=== PATIENT | female | born 1950 | race Caucasian/White ===

== ENCOUNTER 2023-08-22 00:41 | Observation (INO) | payer MEDICARE, OTHER, SELFPAY ==
[2023-08-22] VITALS (8 sets, daily range): BP systolic 126–151; BP diastolic 48–76; PULSE 65–89; RESP 16–20; TEMP 36.3–37; O2SAT 93–98; BMI 31.7; BMI 32.0
--- NOTE | 2023-08-22 | ECG_ITS ---
Test Reason : NAUSEA Blood Pressure : / mmHG Vent. Rate : 066 BPM Atrial Rate : 066 BPM P-R Int : 198 ms QRS Dur : 094 ms QT Int : 428 ms P-R-T Axes : 004 -43 064 degrees QTc Int : 448 ms Normal sinus rhythm Left anterior fascicular block Abnormal ECG No previous ECGs available Referred By: Misbah East Electronically Signed By:MABEL BRADY MD
--- NOTE | ~2023-08-22 | CT_ITS ---
EXAMINATION: CT ABDOMEN AND PELVIS WITHOUT CONTRAST CLINICAL INFORMATION: Gross hematuria COMPARISON: None available. TECHNIQUE: Multidetector volumetric imaging was performed from the superior aspect of the liver through the pubic symphysis. Sagittal and coronal reformatted images were obtained on the technologist's workstation. This CT examination was performed using dose optimization techniques as appropriate, variously including the following: *Automated exposure control *Adjustment of mA and/or kV according to patient size (this includes techniques or standardized protocols for targeted exams where dose is matched to indication/reason for exam; i.e. extremities or head) *Use of iterative reconstruction technique DLP: 679 mGy-cm FINDINGS: LUNG BASES: The visualized lung bases are unremarkable. LIVER, GALLBLADDER, AND BILIARY TREE: The liver is normal in size, shape, and attenuation. No focal hepatic lesion or biliary ductal dilatation is present. Patient is status post cholecystectomy. PANCREAS: Unremarkable. SPLEEN: Calcified granuloma noted. ADRENAL GLANDS: Unremarkable. KIDNEYS AND URETERS: No hydronephrosis or obstructing calculus bilaterally. Tiny calculus noted in the lower left kidney. There are suspected bilateral renal sinus cysts as well as a few cortical cysts; no specific follow-up recommended for these. Of note, there is inadequate assessment for possible renal masses without intravenous contrast. BLADDER: Partially distended with subtle surrounding stranding. GASTROINTESTINAL TRACT: Colonic diverticulosis is noted. The small and large bowel are otherwise unremarkable without evidence of obstruction or pericolonic inflammatory change. The appendix is unremarkable. No free fluid or free air is seen. ABDOMINAL WALL: No significant hernia is appreciated. LYMPH NODES: Normal. VASCULAR: Mild atherosclerotic calcification. PELVIC VISCERA: Patient is status post hysterectomy. OSSEOUS STRUCTURES: Scattered degenerative changes in the spine. CT/CT abdomen pelvis wo IV con IMPRESSION: 1. No hydronephrosis or obstructing calculus. Tiny left lower pole renal calculus. 2. Subtle stranding around the urinary bladder, which could reflect cystitis in the proper clinical setting. 3. Colonic diverticulosis without diverticulitis. 4. Of note, there is inadequate assessment of possible renal masses in the setting of hematuria and lack of intravenous contrast. If warranted, this would be best further assessed with renal protocol MRI.
[2023-08-22 01:19] LABS: Appearance Urine Cloudy; Color Urine Yellow; Glucose Urine UA Negative (Negative); Leukocyte Esterase Urine Large (3+) (Negative); Nitrite Urine Negative (Negative); PH 5.5 (5.0-9.0); Specific Gravity - Urine 1.015 (1.005-1.025); UMIC TRIGGER UACC YES; Urine Blood Large (3+) (Negative); Urine Ketones Negative (Negative); Urine Protein 30 (1+) mg/dL (Neg-Trace)
[2023-08-22 01:24] LABS: Bacteria Urine None Seen (None Seen); Hyaline Casts Urine 0-2 /LPF (0-2); RBC Urine >20 /HPF (0-2); Squamous Epithelial Cell Urine 0-2 /HPF (0-2); UACC Culture Trigger YES; WBC Urine >50 /HPF (0-5)
--- NOTE | 2023-08-22 01:50 | PC.NURSE ---
pt reports her recent ABX was for a respiratory infection not a UTI. pt reports last UTI was 5 years ago. pain only with urination
[2023-08-22 02:14] LABS: MANUAL DIFF FLAG NO
[2023-08-22 02:15] LABS: Basophils Absolute Auto 0.1 X10*3/uL (0.0-0.2); Basophils Percent Auto 0.5 % (0-2); Eosinophils Absolute Auto 0.2 X10*3/uL (0.0-0.4); Hematocrit 34.8 % (37.0-47.0); Hemoglobin 11.5 g/dl (12.0-16.0); Imm Gran Abs Auto 0.07 X10*3/uL (0.00-0.03); Imm Gran Pct Auto 0.7 % (0.0-0.4); Lymphocytes Absolute Auto 2.2 X10*3/uL (1.2-4.9); Lymphocytes Percent Auto 20.8 % (20-40); Mean Corpuscular Hemoglobin 29.8 pg (27.0-33.0); Mean Corpuscular Volume 90.2 fL (80.0-98.0); Mean Platelet Volume 9.1 fL (9.4-12.3); Monocytes Absolute Auto 0.9 X10*3/uL (0.1-1.2); Monocytes Percent Auto 8.6 % (2-11); Neutrophils Absolute Auto 7.2 x10*3/uL (2.0-8.3); Neutrophils Percent Auto 67.4 % (45-73); Platelet Count 259 X10*3/uL (160-400); Red Blood Count 3.86 X10*6/uL (4.20-5.50); Red Cell Distribution Width 12.1 % (11.0-16.0); White Blood Count 10.7 X10*3/uL (4.8-10.8)
--- NOTE | 2023-08-22 02:19 | ED.FEMALEGU ---
HPI - Female Genitourinary General Chief complaint: Urogenital-Female Stated complaint: Blood in urine Time Seen by Provider: 08/22/23 02:18 Source: patient Mode of arrival: ambulatory Limitations: no limitations History of Present Illness HPI Narrative: Patient with history of hemochromatosis, diverticulosis comes here with dysuria frequency for last 4 hours with chills white urinating , noticed bright red blood when she urinated earlier today patient finished a course of amoxicillin for sinus infection about 10 days ago no history of kidney stone no rectal bleed Related Data Home Medications Medication Instructions Recorded Confirmed cetirizine 10 mg tablet 10 mg PO DAILY PRN 03/29/22 fenofibrate nanocrystallized 145 145 mg PO DAILY 03/29/22 mg tablet levothyroxine 25 mcg capsule 25 mcg PO DAILY 03/29/22 lisinopril 10 mg tablet 10 mg PO DAILY 03/29/22 omega-3 fatty acids 500 mg capsule 800 mg PO DAILY 03/29/22 Previous Rx's Medication Instructions Recorded prednisone 10 mg tablet 10 mg PO DAILY #28 tabs 03/29/22 cefuroxime axetil 250 mg tablet 250 mg PO BID 7 days #14 tabs 08/22/23 diphenhydramine HCl 25 mg capsule 50 mg (2 x 25 mg) PO TID PRN 08/22/23 (Benadryl) allergic reaction #30 caps loperamide 2 mg tablet (Imodium 2 mg PO Q6H PRN loose stool #14 08/22/23 A-D) tabs ondansetron 4 mg disintegrating 4 mg PO Q6-8H PRN nausea and 08/22/23 tablet vomiting #7 tabs Allergies Allergy/AdvReac Type Severity Reaction Status Date / Time phenazopyridine Allergy Severe Anaphylaxis Verified 08/22/23 06:47 [From Pyridium] Review of Systems Review of Systems: Yes all other systems are reviewed and are negative PMFSH Past Medical History Medical History Chronic anemia Kidney cysts Diverticulosis Hemochromatosis Social History Alcohol intake: current Alcohol intake frequency: holidays/special occasions only Smoked in Last 30 Days: No Use of substances other than those prescribed or required for medical reasons: No Advance Directives: No Advance Directives Information Provided: Yes Physical Exam Vital Signs: Vital Signs: Last Vital Signs Temp 97.4 F 08/22/23 05:43 Pulse 80 08/22/23 06:51 Resp 19 08/22/23 05:55 BP 137/48 L 08/22/23 06:51 Pulse Ox 93 08/22/23 05:55 O2 Del Method Room Air 08/22/23 05:55 BMI result Body Mass Index 31.7 Appearance: Alert. Oriented X3. No acute distress. Eyes: PERRLA, No Nystagmus ENT: Pharynx normal. Oral Mucosa moist Neck: Normal inspection. Neck supple. CVS: Normal heart rate and rhythm. Pulses normal. Respiratory: No respiratory distress. Equal air entry bilateral, no wheezing/rales/rhonchi Abdomen: Soft and nontender. Bowel sounds are present, no mass palpable, no CVA tenderness Skin: Skin warm and dry. Normal skin color. Normal skin turgor. Extremities: No lower extremity edema. No calf tenderness Neuro: Oriented X 3. No motor deficit. No sensory deficit.No cerebellar signs , cranial nerves II-XII intact Medications Administered Generic Name Dose Route Start Last Admin Trade Name Freq PRN Reason Stop Dose Admin Sodium Chloride 1,000 mls @ 999 mls/hr 08/22/23 07:30 08/22/23 07:26 Ns IV 08/22/23 08:30 999 mls/hr .Q1H1M FREDDIE Administration Discontinued Medications Generic Name Dose Route Start Last Admin Trade Name Freq PRN Reason Stop Dose Admin Cefuroxime Axetil 250 mg 08/22/23 02:58 08/22/23 03:16 Cefuroxime Axetil 250 Mg Tablet PO 08/22/23 02:59 250 mg ONCE ONE Administration Dexamethasone Sodium Phosphate 10 mg 08/22/23 06:23 08/22/23 06:37 Dexamethasone Sod Phosphate 10 Mg/Ml Vial IVPUSH 08/22/23 06:24 10 mg ONCE ONE Administration Diphenhydramine HCl 25 mg 08/22/23 06:23 08/22/23 06:37 Diphenhydramine Hcl 50 Mg/Ml Vial IVPUSH 08/22/23 06:24 25 mg ONCE ONE Administration Droperidol 1.25 mg 08/22/23 07:08 08/22/23 07:19 Droperidol 5 Mg/2 Ml Vial IVPUSH 08/22/23 07:09 1.25 mg ONCE ONE Administration Epinephrine 0.3 mg 08/22/23 06:46 08/22/23 06:51 Epinephrine 1 Mg/Ml Vial IM 08/22/23 06:47 0.3 mg STAT STA Administration Famotidine 20 mg 08/22/23 07:08 08/22/23 07:19 Famotidine/Pf 20 Mg/2 Ml Vial IVPUSH 08/22/23 07:09 20 mg ONCE ONE Administration Sodium Chloride 1,000 mls @ 999 mls/hr 08/22/23 05:10 08/22/23 05:26 Ns IV 08/22/23 06:10 999 mls/hr .Q1H1M ONE Administration Ondansetron HCl 4 mg 08/22/23 04:52 08/22/23 04:57 Ondansetron Odt 4 Mg Tab.Rapdis TRANSLINGU 08/22/23 04:53 4 mg ONCE ONE Administration Ondansetron HCl 4 mg 08/22/23 05:10 08/22/23 05:25 Ondansetron Hcl 4 Mg/2 Ml Vial IVPUSH 08/22/23 05:11 4 mg ONCE ONE Administration Phenazopyridine HCl 200 mg 08/22/23 02:58 08/22/23 03:16 Phenazopyridine Hcl 200 Mg Tablet PO 08/22/23 02:59 200 mg ONCE ONE Administration Prochlorperazine Edisylate 10 mg 08/22/23 06:02 08/22/23 06:08 Prochlorperazine Edisylate 10 Mg/2 Ml Vial IVPUSH 08/22/23 06:03 10 mg ONCE ONE Administration Medical Decision Making Medical Decision Making [facility] Narrative: Patient with UTI symptoms CT scan negative for any kidney stone or bladder mass while in the ER patient started vomiting after patient received Ceftin and Pyridium, will give her Zofran and reevaluate Patient still not feeling well nauseated will give IV fluids Patient cold clammy with nausea vomiting had 2 loose bowel movements everything started after 10 minutes of taking Pyridium not sure whether patient has anaphylactic reaction to Pyridium never had any allergic reaction the past likely patient has GI systemic anaphylactic reaction to Pyridium involving the GI. Patient was given epi IV fluids steroids patient will be discharged home on Ceftin once her symptoms improve Differential Diagnosis Differential Diagnoses: The differential diagnosis associated with the presentation includes Acute hemorrhagic cystitis/kidney stone/UTI/bladder tumor Admission/Observation Consideration of admission/observation: Escalation of care including admission/observation considered Lab Data MDM Lab Attestation statement: I reviewed the patient's lab results. 08/22/23 02:09 08/22/23 02:09 Labs: Lab Results 08/22/23 08/22/23 Range/Units 01:11 02:09 WBC 10.7 (4.8-10.8) X10*3/uL RBC 3.86 L (4.20-5.50) X10*6/uL Hgb 11.5 L (12.0-16.0) g/dl Hct 34.8 L (37.0-47.0) % MCV 90.2 (80.0-98.0) fL MCH 29.8 (27.0-33.0) pg MCHC 33.0 (31.0-35.0) g/dl RDW 12.1 (11.0-16.0) % Plt Count 259 (160-400) X10*3/uL MPV 9.1 L (9.4-12.3) fL Immature Gran % (Auto) 0.7 H (0.0-0.4) % Neut % (Auto) 67.4 (45-73) % Lymph % (Auto) 20.8 (20-40) % [place] % (Auto) 8.6 (2-11) % Eos % (Auto) 2.0 (0-4) % Baso % (Auto) 0.5 (0-2) % Lymph # (Auto) 2.2 (1.2-4.9) X10*3/uL [place] # (Auto) 0.9 (0.1-1.2) X10*3/uL Eos # (Auto) 0.2 (0.0-0.4) X10*3/uL Baso # (Auto) 0.1 (0.0-0.2) X10*3/uL Abs Immat Gran (auto) 0.07 H (0.00-0.03) X10*3/uL Absolute Neuts (auto) 7.2 (2.0-8.3) x10*3/uL Absolute Nucleated RBC 0.000 (0.0-0.012) X10*3/uL Nucleated RBC % (auto) 0.0 (0.0-0.2) /100WBC Sodium 143 (135-145) mmol/L Potassium 4.6 (3.3-5.1) mmol/L Chloride 111 H (96-108) mmol/L Carbon Dioxide 25 (22-29) mmol/L Anion Gap 12 (12-20) BUN 21 H (9-16) mg/dL Creatinine 0.93 (0.5-1.4) mg/dL Estim Creat Clear Calc 66.7 Estimated GFR 59 Random Glucose 118 H (60-115) mg/dL Calcium 9.5 (8.4-10.2) mg/dL Total Bilirubin 0.3 (0.0-1.0) mg/dL AST 16 (5-31) U/L ALT 26 (0-31) U/L Alkaline Phosphatase 49 (39-117) U/L Total Protein 6.8 (6.5-8.0) g/dL Albumin 4.1 (3.5-5.0) g/dL Urine Color Yellow Urine Appearance Cloudy Urine pH 5.5 (5.0-9.0) Ur Specific [place] 1.015 (1.005-1.025) Urine Protein 30 (1+) H (Neg-Trace) mg/dL Urine Glucose (UA) Negative (Negative) mg/dL Urine Ketones Negative (Negative) mg/dL Urine Blood Large (3+) H (Negative) Urine Nitrite Negative (Negative) Ur Leukocyte Esterase Large (3+) H (Negative) Urine RBC >20 H (0-2) /HPF Urine WBC >50 H (0-5) /HPF Ur Squamous Epith Cells 0-2 (0-2) /HPF Urine Bacteria None Seen (None Seen) Hyaline Casts 0-2 (0-2) /LPF Independent Interpretation I performed an independent interpretation of an: EKG and CT Scan Interpretation: Normal sinus rhythm heart rate 66 beats per minute left axis deviation no acute distress in no acute ischemia Radiology Impression Discussion of test interpretation with radiology: I have reviewed the radiologist's reading. Critical Care Time Critical Care Time Critical Care Time: Yes Total Critical Care Time: 55 Attestation: The patient was critically ill with a high probability of imminent or life threatening deterioration. I spent greater than 60 minutes of discontinuous time evaluating the patient,delivering critical care at the bedside, discussing and evaluating pertinent data with consultants. Critical care time does not include time spent performing separately billable procedures or teaching. Total time spent performing critical care was 55 minutes. Discharge Plan Discharge Clinical Impression: Urinary tract infection, Anaphylactic reaction Patient Disposition: Still a Patient Instructions: Urinary Tract Infection in Women (ED), General Allergic Reaction (ED) Additional Instructions: Drink plenty of fluids Take antibiotic as prescribed You likely had systemic anaphylactic reaction to Pyridium do not take this medicine and future Benadryl 1-2 tablets every 6 hours as needed Prescriptions: New cefuroxime axetil 250 mg tablet 250 mg PO BID 7 Days Qty: 14 0RF diphenhydramine HCl [Benadryl] 25 mg capsule 50 mg PO TID PRN (Reason: allergic reaction) Qty: 30 0RF loperamide [Imodium A-D] 2 mg tablet 2 mg PO Q6H PRN (Reason: loose stool) Qty: 14 0RF ondansetron 4 mg tablet,disintegrating 4 mg PO Q6-8H PRN (Reason: nausea and vomiting) Qty: 7 0RF No Action lisinopril 10 mg tablet 10 mg PO DAILY fenofibrate nanocrystallized 145 mg tablet 145 mg PO DAILY levothyroxine 25 mcg capsule 25 mcg PO DAILY cetirizine 10 mg tablet 10 mg PO DAILY PRN omega-3 fatty acids 500 mg capsule 800 mg PO DAILY prednisone 10 mg tablet 10 mg PO DAILY Qty: 28 0RF Rx Instructions: 6 pills by mouth day 1, 6 pills by mouth day 2, 5 pills by mouth day 3, 4 pills by mouth day 4, 3 pills by mouth day 5, 2 pills by mouth day 6, 1 pill by mouth day 7 and 1 pill by mouth day 8.
[2023-08-22 02:28] LABS: Alanine Aminotransferase 26 U/L (0-31); Albumin Level 4.1 g/dL (3.5-5.0); Alkaline Phosphatase 49 U/L (39-117); Anion Gap 12 (12-20); Aspartate Amino Transferase 16 U/L (5-31); Bilirubin Total 0.3 mg/dL (0.0-1.0); Blood Urea Nitrogen 21 mg/dL (9-16); Calcium 9.5 mg/dL (8.4-10.2); Carbon Dioxide 25 mmol/L (22-29); Chloride 111 mmol/L (96-108); Creatinine Clr Calc Pharmacy 66.7; Estimated Glomerular Filt Rate 59; Glucose Random 118 mg/dL (60-115); Potassium 4.6 mmol/L (3.3-5.1); Sodium 143 mmol/L (135-145); Total Protein 6.8 g/dL (6.5-8.0)
[2023-08-22] MEDS: cefuroxime axetiL 250 MG TABLET PO (03:16)
[2023-08-22] MEDS: Phenazopyridine HCL 200 MG TABLET PO (03:16)
[2023-08-22] MEDS: Ondansetron ODT 4 MG TAB.RAPDIS TRANSLINGU (04:57)
--- NOTE | 2023-08-22 05:16 | PC.NURSE ---
pt had episode of N/V, pt incont of BM during episode. MD made aware, pt medicated per MAR, nausea continues
[2023-08-22] MEDS: ondansetron HCL 4 MG/2 ML VIAL IVPUSH (05:25)
[2023-08-22] MEDS: 0.9 % Sodium Chloride 1,000 ML 999 ML IV ×2 (05:26→07:26)
--- NOTE | 2023-08-22 05:53 | PC.NURSE ---
pt now resting in bed, still c/o not feeling well. at bedside
--- NOTE | 2023-08-22 06:05 | PC.NURSE ---
pt had another episode of n/v/d, very weak, diaphoretic, and pale. provider at bedside.
[2023-08-22] MEDS: Prochlorperazine Edisylate 10 MG/2 ML VIAL IVPUSH (06:08)
--- NOTE | 2023-08-22 06:08 | PC.NURSE ---
this rn medicated pt per nov.
[2023-08-22] MEDS: dexAMETHasone sod phosphate 10 MG/ML VIAL IVPUSH (06:37)
[2023-08-22] MEDS: diphenhydrAMINE HCL 50 MG/ML VIAL 25 MG IVPUSH (06:37)
[2023-08-22] MEDS: EPINEPHrine 1 MG/ML VIAL 0.3 MG IM (06:51)
--- NOTE | 2023-08-22 06:55 | PC.NURSE ---
pt ad another episdoe of N/V. aware, at bedside. pt medicated per MAR
[2023-08-22] MEDS: droPERidol 5 MG/2 ML VIAL 1.25 MG IVPUSH (07:19)
[2023-08-22] MEDS: Famotidine/PF 20 MG/2 ML VIAL IVPUSH (07:19)
[2023-08-22] MEDS: Loperamide HCl 2 MG CAPSULE 4 MG PO ×2 (08:25→22:34)
[2023-08-22] MEDS: Diphenoxylate/Atrop 2.5/0.025 TABLET 2 TAB PO (08:25)
[2023-08-22] MEDS: 0.9 % Sodium Chloride 1,000 ML 100 ML IVCONT ×2 (08:26→17:46)
--- NOTE | 2023-08-22 08:35 | P.HPHOSP_ITS ---
History of Present Illness Date of Service: 08/22/23 Chief Complaint: n/v 73F PMH hemochromatosis (?heterozygous), htn, hypothryoid, hld, obesity, presented with urinary frequency, hematuria. symptoms started day of presentation, reports body tingling , no fevers. was given ceftin and pyridium in ED for positive pyuria in ED. patient then had nausea, vomitting and diarrhea, without hives, pruritis, or sob. Review of Systems 2 Review of Systems: Yes all other systems are reviewed and are negative [facility] Medical History Chronic anemia Kidney cysts Diverticulosis Hemochromatosis Alcohol intake: current Alcohol intake frequency: holidays/special occasions only Smoked in Last 30 Days: No Use of substances other than those prescribed or required for medical reasons: No Advance Directives: No Advance Directives Information Provided: Yes Patient : No Meds Allergies Allergy/AdvReac Type Severity Reaction Status Date / Time phenazopyridine Allergy Severe Anaphylaxis Verified 08/22/23 06:47 [From Pyridium] Active Medications: Current Medications Sodium Chloride (Ns) 1,000 mls @ 100 mls/hr IVCONT .Q10H FREDDIE Last Admin: 08/22/23 08:26 Dose: 100 mls/hr Home Medications Medication Instructions Recorded Confirmed Last Taken Type cetirizine 10 mg tablet 10 mg PO DAILY PRN 03/29/22 Unknown History fenofibrate nanocrystallized 145 145 mg PO DAILY 03/29/22 Unknown History mg tablet levothyroxine 25 mcg capsule 25 mcg PO DAILY 03/29/22 Unknown History lisinopril 10 mg tablet 10 mg PO DAILY 03/29/22 Unknown History omega-3 fatty acids 500 mg capsule 800 mg PO DAILY 03/29/22 Unknown History Physical Exam 2 Vital Signs and Narrative: Vital Signs: Last Vital Signs Temp 97.4 F 08/22/23 05:43 Pulse 80 08/22/23 06:51 Resp 19 08/22/23 05:55 BP 137/48 L 08/22/23 06:51 Pulse Ox 93 08/22/23 05:55 O2 Del Method Room Air 08/22/23 05:55 BMI result Body Mass Index 31.7 General: AO X 3, in discomfort Resp: CTA bilateral, no accessory muscles used CVS: S1,S2,RRR GI: soft, non tender, non distended Neuro: motor grossly intact, alert Psych: appropriate affect, appropriate insight Results Labs 08/22/23 02:09 08/22/23 02:09 Labs: Laboratory Results - last 24 hr 08/22/23 08/22/23 01:11 02:09 MCV 90.2 MCH 29.8 MCHC 33.0 RDW 12.1 Plt Count 259 MPV 9.1 L Immature Gran % (Auto) 0.7 H Neut % (Auto) 67.4 Lymph % (Auto) 20.8 [place] % (Auto) 8.6 Eos % (Auto) 2.0 Baso % (Auto) 0.5 Lymph # (Auto) 2.2 [place] # (Auto) 0.9 Eos # (Auto) 0.2 Baso # (Auto) 0.1 Abs Immat Gran (auto) 0.07 H Absolute Neuts (auto) 7.2 Absolute Nucleated RBC 0.000 Nucleated RBC % (auto) 0.0 Anion Gap 12 Estim Creat Clear Calc 66.7 Estimated GFR 59 Random Glucose 118 H Calcium 9.5 Total Bilirubin 0.3 AST 16 ALT 26 Alkaline Phosphatase 49 Total Protein 6.8 Albumin 4.1 Urine Color Yellow Urine Appearance Cloudy Urine pH 5.5 Ur Specific [place] 1.015 Urine Protein 30 (1+) H Urine Glucose (UA) Negative Urine Ketones Negative Urine Blood Large (3+) H Urine Nitrite Negative Ur Leukocyte Esterase Large (3+) H Urine RBC >20 H Urine WBC >50 H Ur Squamous Epith Cells 0-2 Urine Bacteria None Seen Hyaline Casts 0-2 Imaging Radiologist's Impressions: Impressions Abdomen/Pelvis CT 08/22/23 03:10 IMPRESSION: 1. No hydronephrosis or obstructing calculus. Tiny left lower pole renal calculus. 2. Subtle stranding around the urinary bladder, which could reflect cystitis in the proper clinical setting. 3. Colonic diverticulosis without diverticulitis. 4. Of note, there is inadequate assessment of possible renal masses in the setting of hematuria and lack of intravenous contrast. If warranted, this would be best further assessed with renal protocol MRI. Assessment and Plan (1) Diarrhea: Qualifiers: Diarrhea type: presumed infectious Qualified Code(s): R19.7 - Diarrhea, unspecified Status: Acute Plan 73F PMH hemochromatosis (?heterozygous), htn, hypothryoid, hld, obesity, presented with urinary frequency, hematuria. after treatment in ED had n/v/d UTI levaquin follow up culture intractable n/v/d ? allergy to cephalosporin vs symptoms of uti ivf, zofran, follow up stool study htn lisinopril hypothryoid synthroid hld tricor obesity weight loss recommended dvt prophylaxis - lovenox full code Quality Stroke Does the patient have a stroke diagnosis?: No VTE Prior VTE?: No VTE Risk Level:: Medical - moderate - high VTE Device Contraindication: Treatment Not Indicated VTE Drug Contraindication: N/A - Med Ordered
[2023-08-22 08:59] LABS: COVID-19 Test Negative (Negative); IDNOW Serial# BCCEAD1C
[2023-08-22 09:09] LABS: CDiff Gene PCR NEGATIVE (Negative)
--- NOTE | 2023-08-22 09:19 | PHA.MEDREC ---
Pharmacy Consult ? Medication Reconciliation Pharmacy has completed the medication reconciliation. spoke with patient to confirm medications. Called [facility] to verify.
[2023-08-22] MEDS: levoFLOXacin/D5W 500 MG/100 ML PIGGYBACK 100 MG IV (09:32)
[2023-08-22] MEDS: Enoxaparin Sodium 40 MG/0.4 ML SYRINGE SUBCUT (09:32)
--- NOTE | 2023-08-22 10:02 | PC.NURSE ---
Meliton not loaded in [employer]; pharmacy called. Med will be brought to unit.
[2023-08-22] MEDS: Fenofibrate 160 MG TABLET PO (10:31)
[2023-08-22] MEDS: Levothyroxine Sodium 25 MCG TABLET PO (10:31)
[2023-08-22] MEDS: lisinopriL 10 MG TABLET PO (10:31)
[2023-08-22] MEDS: Loratadine 10 MG TABLET PO (10:31)
--- NOTE | 2023-08-22 11:06 | PC.NURSE ---
Pt has been tolerating PO medication without N/V.
--- NOTE | 2023-08-22 14:17 | PC.NURSE ---
report given to [facility] RN.
[2023-08-23] VITALS: BP 119/56; PULSE 79; RESP 20; TEMP 36.7; O2SAT 96
[2023-08-23 03:39] VITALS: BP 150/76; PULSE 88; RESP 20; TEMP 36.1; O2SAT 99
[2023-08-23] MEDS: 0.9 % Sodium Chloride 1,000 ML 100 ML IVCONT (04:24)
[2023-08-23] MEDS: Levothyroxine Sodium 25 MCG TABLET PO (06:46)
[2023-08-23] MEDS: Loperamide HCl 2 MG CAPSULE 4 MG PO (06:46)
[2023-08-23 07:39] LABS: Hematocrit 30.7 % (37.0-47.0); Hemoglobin 10.3 g/dl (12.0-16.0); Mean Corpuscular HGB Conc 33.6 g/dl (31.0-35.0); Mean Corpuscular Hemoglobin 30.4 pg (27.0-33.0); Mean Corpuscular Volume 90.6 fL (80.0-98.0); Mean Platelet Volume 10.1 fL (9.4-12.3); Platelet Count 260 X10*3/uL (160-400); Red Blood Count 3.39 X10*6/uL (4.20-5.50); Red Cell Distribution Width 12.2 % (11.0-16.0); White Blood Count 11.5 X10*3/uL (4.8-10.8)
[2023-08-23 07:42] VITALS: BP 140/62; PULSE 70; RESP 18; TEMP 36.3; O2SAT 96
[2023-08-23 08:02] LABS: Anion Gap 9 (12-20); Blood Urea Nitrogen 15 mg/dL (9-16); Calcium 8.5 mg/dL (8.4-10.2); Carbon Dioxide 23 mmol/L (22-29); Chloride 113 mmol/L (96-108); Creatinine Clr Calc Pharmacy 77.9; Estimated Glomerular Filt Rate > 60; Glucose Fasting 113 mg/dL (60-99); Magnesium 1.8 mg/dL (1.6-2.6); Potassium 3.8 mmol/L (3.3-5.1); Sodium 141 mmol/L (135-145)
--- NOTE | 2023-08-23 08:19 | PM.DS ---
DS: Providers Provider Date of Service: 08/23/23 Date of admission: 08/22/23 08:37 Primary care physician: Unknown Physician DS: Diagnosis Discharge Diagnosis (1) Diarrhea: Status: Acute DS: Summary Hospital Course Hospital Course: from initial hpi: 73F PMH hemochromatosis, htn, hypothryoid, hld, obesity, presented with urinary frequency, hematuria. symptoms started day of presentation, reports body tingling , no fevers. was given ceftin and pyridium in ED for positive pyuria in ED. patient then had nausea, vomitting and diarrhea, without hives, pruritis, or sob. hospital course: Patient was observed after intractable nausea vomiting and diarrhea after taking Ceftin and peridium, possible allergic reaction. Was treated with IV fluids, Zofran, Benadryl. Symptoms resolved. For urinary tract infection patient was given levofloxacin and tolerated that well. Urine cultures are still pending and should be followed up. For hypertension was continue lisinopril. For hypothyroidism is continue on Synthroid. For hyperlipidemia was continued on Tricor. For obesity weight loss recommended. Patient is feeling better will be discharged home. Time Attestation Discharge coordination time: Greater than 30 minutes Quality: Safe Use of Opioids Does Pt have an Active Cancer Diagnosis on the Problem List?: No Quality: Stroke Does the patient have a stroke diagnosis?: No Physical Exam Vital Signs: Vital Signs: Last Vital Signs Temp 97.4 F 08/23/23 07:42 Pulse 70 08/23/23 07:42 Resp 18 08/23/23 07:42 BP 140/62 H 08/23/23 07:42 Pulse Ox 96 08/23/23 07:42 O2 Del Method Room Air 08/23/23 07:42 BMI result Body Mass Index 32.0 Appearance: Alert. Oriented X3. No acute distress. Eyes: PERRLA, No Nystagmus ENT: Pharynx normal. Oral Mucosa moist Neck: Normal inspection. Neck supple. CVS: Normal heart rate and rhythm. Pulses normal. Respiratory: No respiratory distress. Equal air entry bilateral, no wheezing/rales/rhonchi Abdomen: Soft and nontender. Bowel sounds are present, no mass palpable, no CVA tenderness Skin: Skin warm and dry. Normal skin color. Normal skin turgor. Extremities: No lower extremity edema. No calf tenderness Neuro: Oriented X 3. No motor deficit. No sensory deficit.No cerebellar signs , cranial nerves II-XII intact DS: Data Data Completed and Pending Labs on day of discharge: Laboratory Results - last 24 hr 08/22/23 08/22/23 08/23/23 08:14 08:29 06:44 WBC 11.5 H RBC 3.39 L Hgb 10.3 L Hct 30.7 L MCV 90.6 MCH 30.4 MCHC 33.6 RDW 12.2 Plt Count 260 MPV 10.1 Absolute Nucleated RBC 0.000 Nucleated RBC % (auto) 0.0 Sodium 141 Potassium 3.8 Chloride 113 H Carbon Dioxide 23 Anion Gap 9 L BUN 15 Creatinine 0.80 Estim Creat Clear Calc 77.9 Estimated GFR > 60 Fasting Glucose 113 H Calcium 8.5 D Magnesium 1.8 C. difficile Tox B Gene NEGATIVE COVID-19 (DUSTIN) Negative COVID-19 Clin Com See Note Discharge Plan Discharge Anticipated Discharge Date/Time: 08/23/23 08:14 Patient Disposition: Home, Self-Care Discharge Diagnosis: cystitis, n/v/d Referrals: Physician,Unknown J [Primary Care Provider] - 1 Week Discharge Medications: New diphenhydramine HCl [Benadryl] 25 mg capsule 50 mg PO TID PRN (Reason: allergic reaction) Qty: 30 0RF loperamide [Imodium A-D] 2 mg tablet 2 mg PO Q6H PRN (Reason: loose stool) Qty: 14 0RF ondansetron 4 mg tablet,disintegrating 4 mg PO Q6-8H PRN (Reason: nausea and vomiting) Qty: 7 0RF levofloxacin 500 mg tablet 500 mg PO DAILY Qty: 3 0RF Continued lisinopril 10 mg tablet 10 mg PO DAILY fenofibrate nanocrystallized 145 mg tablet 145 mg PO DAILY levothyroxine 25 mcg capsule 25 mcg PO DAILY cetirizine 10 mg tablet 10 mg PO DAILY omega-3 fatty acids 500 mg capsule 500 mg PO DAILY Discharge Orders: Discharge Order (Routine); Ordered 08/23/23 Ordered By: Jean Pirere Ramos Diet: Advance to usual diet Activity on Discharge: As tolerated Stand Alone Forms: Patient Portal Discharge page Activity Restrictions/Additional Instructions: 3 more days of levofloxacin allergic reaction could be from pyridium or cefuroxime - would avoid both for now, consider confirming allergy with medical office representative follow up urine culture results - if still having symptoms and signs of levaquin resistence would change to another antibiotic Care Plan Goals: recovery Health Concerns: uti Plan of Treatment: see above Assessment: see above
[2023-08-23] MEDS: lisinopriL 10 MG TABLET PO (08:29)
[2023-08-23] MEDS: Fenofibrate 160 MG TABLET PO (08:29)
[2023-08-23] MEDS: Enoxaparin Sodium 40 MG/0.4 ML SYRINGE SUBCUT (08:29)
[2023-08-23] MEDS: levoFLOXacin/D5W 500 MG/100 ML PIGGYBACK 100 MG IV (08:30)
[2023-08-23] MEDS: Loratadine 10 MG TABLET PO (08:31)
--- NOTE | 2023-08-23 09:12 | MHC.CM.PN ---
MD order for home, self-care prior to CM interview. CM acknowledge.
== END 2023-08-23 10:16 | disposition home or self-care (01) ==
LOC: HO.ED 08:18 → HO.EDOVER 08:38 → HO.IMC 14:01
PROVIDERS: Internal Medicine; Admitting Provider Internal Medicine; Emergency Provider Emergency Medicine; Visit Provider Internal Medicine
DX: N30.90 Cystitis, unspecified without hematuria (principal); R19.7 Diarrhea, unspecified; R11.2 Nausea with vomiting, unspecified; T78.49XA Other allergy, initial encounter; T50.905A Adverse effect of unspecified drugs, medicaments and biological substances, initial encounter; Y92.9 Unspecified place or not applicable; E83.119 Hemochromatosis, unspecified; R30.0 Dysuria; R35.0 Frequency of micturition; Z79.899 Other long term (current) drug therapy; Z11.52 Encounter for screening for COVID-19
CPT/HCPCS: 36415; 74176; 80048; 80053; 81001; 83735; 85025; 85027; 87086; 87088; 87186; 87493; 87635; 93005; 96361; 96365; 96366; 96372; 96375; 99222; 99285; J0171; J0737; J1100; J1200; J1650; J1790; J1956; J2405

== ENCOUNTER → 2023-08-22 08:37 | Outpatient (BNV) | payer MEDICARE, OTHER, SELFPAY | PROVIDERS: Admitting Provider Internal Medicine; Emergency Provider Emergency Medicine; Visit Provider Internal Medicine | DX: R19.7 Diarrhea, unspecified (principal) | CPT/HCPCS: 99222; 99239 ==